=== PATIENT | female | born 1940 | race Caucasian/White ===

== ENCOUNTER → 2019-12-13 09:46 | Outpatient (BNVA) | payer MEDICARE, SELFPAY | PROVIDERS: Family Provider Internal Medicine; Visit Provider Dermatology | DX: D48.9 Neoplasm of uncertain behavior, unspecified (principal); L57.0 Actinic keratosis; L82.0 Inflamed seborrheic keratosis; Z12.83 Encounter for screening for malignant neoplasm of skin | CPT/HCPCS: 11102; 17004; 88304; 88305; 99203 ==

== ENCOUNTER → 2020-03-20 08:28 | Outpatient (BNVA) | payer MEDICARE, SELFPAY | PROVIDERS: Family Provider Internal Medicine; Visit Provider Family Medicine Adult Medicine | DX: R30.0 Dysuria (principal) | CPT/HCPCS: 81000; 87086 ==

== ENCOUNTER → 2020-03-24 11:24 | Outpatient (BNVA) | payer MEDICARE, SELFPAY | PROVIDERS: Family Provider Internal Medicine; Visit Provider Nurse Practitioner Family | DX: Z20.828 Contact with and (suspected) exposure to other viral communicable diseases (principal) | CPT/HCPCS: 87635 ==

== ENCOUNTER → 2022-06-25 12:19 | Outpatient (BNVA) | payer SELFPAY | PROVIDERS: Family Provider Internal Medicine | DX: Z13.6 Encounter for screening for cardiovascular disorders (principal); E78.5 Hyperlipidemia, unspecified | CPT/HCPCS: 80061; 82947; 83036 ==